=== PATIENT | female | born 1940 | race Caucasian/White ===

== ENCOUNTER 2022-09-19 09:26 | Outpatient (CLI) | payer MEDICARE, SELFPAY ==
--- NOTE | 2022-09-19 09:39 | ECG_ITS ---
Measurements Intervals [place] Rate: 72 P: 90 [place]: 162 QRS: -8 QRSD: 102 T: 19 QT: 405 QTc: 444 Interpretive Statements SINUS RHYTHM INCOMPLETE RIGHT BUNDLE BRANCH BLOCK VOLTAGE CRITERIA FOR LVH MINIMAL Q WAVES- HIGH LATERAL LEADS BASELINE ARTIFACT- I, II, III, AVR, AVL, AVF BORDERLINE ECG NO PREVIOUS ECG AVAILABLE FOR COMPARISON Electronically Signed On 09-19-2022 10:13:06 CDT by Joselo Cheatham D.O.
[2022-09-19 10:38] LABS: Anion Gap 7 mmol/L (8-16); Blood Urea Nitrogen 19 mg/dL (7-17); Carbon Dioxide 29 mmol/L (22-30); Chloride 97 mmol/L (98-107); Potassium 3.9 mmol/L (3.4-5.0); Sodium 133 mmol/L (137-145)
[2022-09-19 10:39] LABS: Calcium 9.3 mg/dL (8.4-10.2); Estimated Glomerular Filt Rate > 60; Glucose 96 mg/dL (65-110)
== END 2022-09-19 09:27 | disposition home or self-care (01) ==
LOC: ANHSURGERY 09:31
PROVIDERS: Anesthesiology; Visit Provider Otolaryngology
DX: Z01.812 Encounter for preprocedural laboratory examination (principal); Z01.810 Encounter for preprocedural cardiovascular examination; I10 Essential (primary) hypertension; I45.10 Unspecified right bundle-branch block
CPT/HCPCS: 36415; 80048; 93005

== ENCOUNTER 2024-03-03 12:16 | Emergency (ER) | payer MEDICARE, SELFPAY ==
--- NOTE | ~2024-03-03 | XR_ITS ---
Portable chest x-ray Comparison: 01/31/2018 Clinical History: Status post fall Findings: Probable linear scarring at the left lung base. No acute pulmonary abnormality seen. Card iomediastinal silhouette is stable. Bones and soft tissues are unremarkable. Impression: Linear left basilar scarring, otherwise clear lungs. Reviewed, dictated and finalized at [facility]. PRODUCT TRAINER Impression: Linear left basilar scarring, otherwise clear lungs.
--- NOTE | ~2024-03-03 | XR_ITS ---
Left Shoulder Technique: AP and scapular Y views were obtained. Clinical History: Pain Findings: No fracture or dislocation is seen. Osseous alignment is anatomic. The glenohumeral and acr omioclavicular joint spaces are preserved. Soft tissues are unremarkable. Impression: Unremarkable left shoulder radiographs. Reviewed, dictated and finalized at [facility]. NG MACHINE OPERATOR HORIZONTAL Impression: Unremarkable left shoulder radiographs.
--- NOTE | ~2024-03-03 | CT_ITS ---
Noncontrast CT scan of the cervical spine Technique: Multiple contiguous axial [address] images of the cervical spine were obtained and rec onstructed in 2D sagittal and coronal planes on the acquisition scanner. Dose reduction technique was used on this scan by utilizing automated exposure control, adjustment of the mA and/or kV according to patient size. The dose-length product (DLP) was 179.63 mGy-cm. Clinical History: Pain Findings: No fractures or dislocations. There is advanced degenerative disc narrowing at C3-C4, C4-C 5, C5-C6, and C6-C7. There is extensive uncovertebral degenerative change. There are mild disc osteop hyte complexes in the cervical spine, worst at C4-C5. Probable bilateral neural foraminal narrowing a t C5-C6 and C6-C7. No prevertebral soft tissue swelling. Impression: No fracture or subluxation of the cervical spine. Degenerative change, as above. Reviewed, dictated and finalized at [facility]. ER UPPERS OR LININGS Impression: No fracture or subluxation of the cervical spine. Degenerative change, as above.
--- NOTE | ~2024-03-03 | CT_ITS ---
CT head without contrast Indication: Status post fall Technique: Serial scans were obtained through the brain without the administration of contrast. Dose reduction technique was used on this scan by utilizing automated exposure control and iterative recon struction technique. The dose-length product (DLP) was 605.33 mGy-cm. Findings: There is no evidence of intracranial hemorrhage, mass lesion, or acute infarct. The ventri cles and subarachnoid spaces are dilated, consistent with mild atrophy. Low attenuation regions are seen within the periventricular white matter bilaterally, likely representing changes from chronic mi crovascular ischemic disease. There is no evidence of edema, mass effect or midline shift. The visu alized paranasal sinuses and mastoid air cells are clear. Impression: No intracranial hemorrhage, mass, or acute infarct. Atrophy and chronic white matter changes, as above. Reviewed, dictated and finalized at location . ARCH CONTRACTS SUPERVISOR Impression: No intracranial hemorrhage, mass, or acute infarct. Atrophy and chronic white matter changes, as above.
[2024-03-03 12:19] VITALS: BP 148/69; PULSE 88; RESP 16; TEMP 36.6; O2SAT 98
--- NOTE | 2024-03-03 12:23 | ECG_ITS ---
Test Date: 2024-03-03 12:34:19 Measurements Intervals [place] Rate: 79 P: 62 [place]: 169 QRS: -17 QRSD: 94 T: 13 QT: 383 QTc: 440 Interpretive Statements SINUS RHYTHM INCOMPLETE RIGHT BUNDLE BRANCH BLOCK [90+ ms QRS DURATION, TERMINAL R IN V1/V2, 40+ ms S IN I/aVL/V4/V5/V6] VOLTAGE CRITERIA FOR LVH [MEETS CRITERIA IN ONE OF: R(aVL), S(V1), R(V5), R(V5/V6)+S(V1)] POSSIBLE ANTERIOR MYOCARDIAL INFARCTION , OF INDETERMINATE AGE [30 ms Q WAVE IN V3/V4, OR R < 0.2 mV IN V4] No previous ECG available for comparison Electronically Signed On 03-03-2024 22:43:44 HEAD OF ADVERTISING by Amie Monae M.D.
--- NOTE | 2024-03-03 12:24 | ED_ITS ---
HPI - Extremity Injury (Upper) General Chief Complaint: Extremity Injury, Upper Stated Complaint: GLF x1w ago, left shoulder pain Focused HPI: 84-year-old female presents to the ED with at bedside for left shoulder pain after ground level fall that occurred 1 week ago. Patient states she was at home and next thing she knew, she was on the ground. She is unsure what caused her fall. She did hit her head but no LOC. She denies vision changes, focal numbness or weakness, back pain, hip pain or other injuries. She states she is having difficulty moving her left shoulder secondary to pain. She is not anticoagulated. GENERAL: Well-appearing, well-nourished, and in no acute distress. HEAD: Normocephalic, atraumatic. CHEST: Clear to auscultation. ?No respiratory distress. HEART: Regular rate and rhythm.? NEURO: ?Alert and oriented x3. Patient screened in triage and initial orders placed.? ?Additional care and disposition to be based upon?diagnostic testing and treatment. Related Data Home Medications ?Medication ?Instructions ?Recorded ?Confirmed ?Last Taken ?Type B-complex with vitamin C 1 tablet PO DAILY 06/14/22 10/18/22 Unknown History aspirin 81 mg tablet,delayed 81 mg PO DAILY 06/14/22 10/18/22 Unknown History release (Adult Aspirin Regimen) levothyroxine 112 mcg capsule 112 mcg PO DAILY 06/14/22 10/18/22 Unknown History simvastatin 20 mg tablet 20 mg PO DAILY 06/14/22 10/18/22 Unknown History vitamins A,C,C-jycn-gpuoev 4,296 2 cap PO QAM AND QPM 06/14/22 10/18/22 Unknown History mcg-226 mg-90 mg capsule (ICaps AREDS) calcium 500 mg-vitamin D3 200 1 tablet PO DAILY 09/17/22 10/18/22 Unknown History unit-vitamin K 40 mcg chewable tablet ergocalciferol (vitamin D2) 1,250 50,000 unit PO 3XW 09/17/22 10/18/22 Unknown History mcg (50,000 unit) capsule (Vitamin D2) fluticasone propionate 50 2 spray intranasal DAILY 09/17/22 10/18/22 Unknown History mcg/actuation nasal spray,suspension irbesartan 300 1 tablet PO DAILY 09/17/22 10/18/22 Unknown History mg-hydrochlorothiazide 12.5 mg tablet Allergies Allergy/AdvReac Type Severity Reaction Status Date / Time Penicillins Allergy Intermediate Hives Verified 03/03/24 12:18 shellfish derived Allergy Intermediate Hives / Verified 03/03/24 12:18 Red Face PMFSH Family History Family History Father Cerebrovascular accident Social History Social History Smoking packs per day: 1 Smoking cigarettes per day: 20.0 Years smoked: 12 Smoking pack-years: 12.00 Smoking status: Former smoker Tobacco type: cigarettes Smoking end date: 03/04/64 Alcohol intake: current Drinks per week: 7 Alcohol use details: WINE Lack of Transportation: No Lack of Food: Never True Current Housing: I Have Housing Concerned About Future Housing: No Difficulty Paying Gas/Electric Bills: No Difficulty Paying for Meds: No Currently Unemployed: No Education: Associate Degree Difficulty w/ Childcare or Family Care: No Living arrangements: with family Spiritual care concerns: No Course Vital Signs Vital signs: Vital Signs Temperature 97.8 F 03/03/24 12:19 Pulse Rate 88 03/03/24 12:19 Respiratory Rate 16 03/03/24 12:19 Blood Pressure 148/69 H 03/03/24 12:19 Pulse Oximetry 98 03/03/24 12:19 Temperature 97.8 F 03/03/24 12:19 Pulse Rate 88 03/03/24 12:19 Respiratory Rate 16 03/03/24 12:19 Blood Pressure 148/69 H 03/03/24 12:19 Pulse Oximetry 98 03/03/24 12:19 MDM - Extremity Injury (Upper) Lab Data 03/03/24 12:30 03/03/24 12:30 Labs: Lab Results 03/03/24 Range/Units 12:30 WBC 13.4 H (4.5-10.0) K/mm3 RBC 4.90 (4.2-5.4) M/mm3 Hgb 14.8 (12.0-15.0) g/dL Hct 45.6 (37.0-47.0) % MCV 93.1 (80-100) fl MCH 30.2 (26-34) pg MCHC 32.5 (32-36) g/dl RDW 13.5 (11.5-14.5) % Plt Count 421 H (150-375) k/mm3 MPV 9.3 (7.4-10.4) fl Immature Gran % (Auto) 0.4 (0-0.5) % Neut % (Auto) 75.7 H (45.5-73.1) % Lymph % (Auto) 14.2 L (18.3-44.2) % [place] % (Auto) 7.1 (2.6-8.5) % Eos % (Auto) 1.9 (0-4.4) % Baso % (Auto) 0.7 (0.2-1.2) % Lymph # (Auto) 1.90 (0.9-3.2) K/mm3 [place] # (Auto) 1.0 H (0.1-0.6) K/mm3 Eos # (Auto) 0.3 (0-0.3) K/mm3 Baso # (Auto) 0.1 (0.0-0.1) K/mm3 Abs Immat Gran (auto) 0.06 H (0.00-0.031) K/mm3 Absolute Neuts (auto) 10.1 H (1.3-6.7) K/mm3 Absolute Nucleated RBC 0.000 (0.0-0.012) K/mm3 Nucleated RBC % 0.0 (0.0-0.2) % Sodium 135 L (137-145) mmol/L Potassium 3.7 (3.4-5.0) mmol/L Chloride 101 (98-107) mmol/L Carbon Dioxide 30 (22-30) mmol/L Anion Gap 4 (4-12) mmol/L BUN 21 H (7-17) mg/dL Creatinine 0.80 (0.7-1.0) mg/dL Estim Creat Clear Calc Not Reportable Estimated GFR > 60 (59 - ) Glucose 124 H (65-110) mg/dL Calcium 10.0 (8.4-10.2) mg/dL Total Bilirubin 0.7 (0.2-1.3) mg/dL AST 25 (14-36) U/L ALT 22 (6-35) U/L Alkaline Phosphatase 101 (38-126) U/L Total Protein 8.0 (6.3-8.2) g/dL Albumin 4.5 (3.5-5.1) g/dL Discharge Plan Discharge Clinical Impression: Fall Qualifiers: Encounter type: initial encounter Qualified Code(s): W19.XXXA - Unspecified fall, initial encounter Patient Disposition: Elopement After Seen by Prov Condition: Stable Patient Language: Latvian Prescriptions: No Action simvastatin 20 mg tablet 20 mg PO DAILY levothyroxine 112 mcg capsule 112 mcg PO DAILY aspirin [Adult Aspirin Regimen] 81 mg tablet,delayed release (DR/EC) 81 mg PO DAILY ICaps AREDS 4,296 mcg-226 mg-90 mg capsule 2 cap PO QAM AND QPM B-complex with vitamin C Tablet 1 tablet PO DAILY mupirocin 2 % ointment See Rx Instructions topical .COMPLEX Qty: 22 0RF Rx Instructions: 1-2x per day in the nose irbesartan-hydrochlorothiazide 300-12.5 mg tablet 1 tablet PO DAILY calcium-vitamin D3-vitamin K [Viactiv] 500-200-40 mg-unit-mcg Tablet,Chewable 1 tablet PO DAILY fluticasone propionate 50 mcg/actuation spray,suspension 2 spray intranasal DAILY ergocalciferol (vitamin D2) [Vitamin D2] 1,250 mcg (50,000 unit) capsule 50,000 unit PO 3XW azelastine 137 mcg (0.1 %) aerosol,spray 1 spray intranasal Q12H Qty: 30 0RF Rx Instructions: administer into each nostril fluticasone propion-salmeterol [Wixela Inhub] 100-50 mcg/dose blister with device 1 inh inhalation Q8H Qty: 60 3RF Rx Instructions: Rinse/gargle with water after use ipratropium bromide 21 mcg (0.03 %) spray,non-aerosol 2 spray intranasal TID Qty: 30 0RF Rx Instructions: administer into each nostril Follow-up/Referrals: Syibl,Tara Guadalupe MD [Primary Care Provider] -
[2024-03-03 12:38] LABS: Basophils Absolute Auto 0.1 K/mm3 (0.0-0.1); Basophils Percent Auto 0.7 % (0.2-1.2); Eosinophils Absolute Auto 0.3 K/mm3 (0-0.3); Eosinophils Percent Auto 1.9 % (0-4.4); Hematocrit 45.6 % (37.0-47.0); Hemoglobin 14.8 g/dL (12.0-15.0); Immature Granulocyte Absolute 0.06 K/mm3 (0.00-0.031); Immature Granulocyte Percent A 0.4 % (0-0.5); Lymphocytes Percent Auto 14.2 % (18.3-44.2); Mean Corpuscular HGB Conc 32.5 g/dl (32-36); Mean Corpuscular Hemoglobin 30.2 pg (26-34); Mean Corpuscular Volume 93.1 fl (80-100); Mean Platelet Volume 9.3 fl (7.4-10.4); Monocytes Percent Auto 7.1 % (2.6-8.5); Neutrophils Absolute Auto 10.1 K/mm3 (1.3-6.7); Neutrophils Percent Auto 75.7 % (45.5-73.1); Platelet Count Result 421 k/mm3 (150-375); Red Cell Distribution Width 13.5 % (11.5-14.5); White Blood Count 13.4 K/mm3 (4.5-10.0)
[2024-03-03 12:48] LABS: Alanine Aminotransferase 22 U/L (6-35); Albumin Level 4.5 g/dL (3.5-5.1); Alkaline Phosphatase 101 U/L (38-126); Anion Gap 4 mmol/L (4-12); Aspartate Amino Transferase 25 U/L (14-36); Bilirubin,Total 0.7 mg/dL (0.2-1.3); Blood Urea Nitrogen 21 mg/dL (7-17); Carbon Dioxide 30 mmol/L (22-30); Chloride 101 mmol/L (98-107); Estimated Glomerular Filt Rate > 60; Glucose 124 mg/dL (65-110); Potassium 3.7 mmol/L (3.4-5.0); Sodium 135 mmol/L (137-145)
== END 2024-03-03 16:56 | disposition left against medical advice (07) ==
PROVIDERS: Emergency Provider Physician Assistant; PCP Internal Medicine
DX: M25.512 Pain in left shoulder (principal); W18.30XA Fall on same level, unspecified, initial encounter; Z79.82 Long term (current) use of aspirin; Z87.891 Personal history of nicotine dependence
CPT/HCPCS: 36415; 70450; 71045; 72125; 73030; 80053; 85025; 93005; 99284